=== PATIENT | male | born 1940 ===

== ENCOUNTER 2020-07-19 07:30 | Inpatient (IN) ==
[~2020-07-19 07:30] MED LIST: Buffered Lidocaine 1% SYRIN 1 ml INTRADERM ONE; Lactated Ringers 1000 ml BAG 1,000 ML IV SCH
[2020-08-16] MEDS ORDERED: Buffered Lidocaine 1% SYRIN 1 ml INTRADERM ONE ×2 (06:00→11:39)
[2020-08-16] MEDS ORDERED: Lactated Ringers 1000 ml BAG 1,000 ML IV SCH (06:00)
[2020-08-16] MEDS ORDERED: Midazolam 5 mg/5 ml VIAL 1 mg/ml 5 ml VIAL (5 mg) ONE (10:48)
[2020-08-16] MEDS ORDERED: Propofol 10 MG/ML 20 ML BTL ONE ×3 (10:53→15:25)
[2020-08-16] MEDS ORDERED: Clindamycin 900 MG/D5W BAG 900 MG/50 ML BAG IVPB ONE (11:39)
[2020-08-16] MEDS ORDERED: ROPIVACAINE 5 MG/ML 30 ML BTL (0.5%) ONE (12:10)
[2020-08-16] MEDS ORDERED: Lidocaine 1% MPF 5 ML VIAL ONE (12:10)
[2020-08-16] MEDS ORDERED: fentaNYL 100 mcg/2 ml 50 MCG/ML VIAL ONE (13:44)
[2020-08-16] MEDS ORDERED: Naloxone 0.4 mg VIAL 0.4 mg/ml 1 ml VIAL IV PRN (13:50)
[2020-08-16] MEDS ORDERED: fentaNYL 100 mcg/2 ml 50 MCG/ML VIAL IV PRN (13:50)
[2020-08-16] MEDS ORDERED: Ondansetron 4 mg VIAL 2 MG/ML 2 ml VIAL IV PRN ×2 (13:50→16:10)
[2020-08-16] MEDS ORDERED: Ondansetron 4 mg VIAL 2 MG/ML 2 ml VIAL ONE (13:58)
[2020-08-16] MEDS ORDERED: diPHENhydraMINE IV 50 MG/ML 1 ml VIAL (BENADRYL) IV PRN (16:10)
[2020-08-16] MEDS ORDERED: Morphine 2 MG/ML SYRINGE IV PRN (16:10)
[2020-08-16] MEDS ORDERED: Magnesium Hydroxide LIQ 30 ML UDC PO PRN (16:10)
[2020-08-16] MEDS ORDERED: Lactulose 30 ml UDC PO PRN (16:10)
[2020-08-16] MEDS ORDERED: Ondansetron ODT 4 mg TAB 4 MG TAB PO PRN (16:10)
[2020-08-16] MEDS ORDERED: diPHENhydraMINE 25 mg TAB PO PRN (16:10)
[2020-08-16] MEDS: Lactated Ringers 1000 ml BAG 1,000 ML IV SCH (17:23)
[2020-08-16] MEDS: Potassium Chlor 10 meq TAB PO SCH (20:12)
[2020-08-16] MEDS: oxyCODONE/Acetamin 5/325 mg TAB PO PRN (20:12)
[2020-08-16] MEDS: Magnesium Hydroxide LIQ 30 ML UDC PO SCH (20:15)
[2020-08-16] MEDS: PTO:Albuterol/Ipratropium RESP(NF) MDI (Combivent Respimat) INH SCH (21:17)
[2020-08-16] MEDS: Clindamycin 600 MG/D5W BAG 600 MG/50 ML BAG IV SCH (21:19)
[2020-08-17] MEDS: oxyCODONE/Acetamin 5/325 mg TAB PO PRN ×4 (00:08→21:08)
[2020-08-17 01:59] LABS: ABS Basophils 0.1 10^3/ul (0-0.2); ABS Eosinophils 0.1 10^3/ul (0-0.6); ABS Lymphocytes 1.1 10^3/ul (1.0-4.8); ABS Neutrophils 11.7 10^3/ul (1.5-7.7); Eosinophil % 0.9 %; Hematocrit 36 % (42-52); Lymphocyte % 8.2 %; Mean Corpuscular HGB Conc 36 g/dL (31-36); Mean Corpuscular Hemoglobin 35 pg (27-31); Mean Corpuscular Volume 97 fL (80-94); Mean Platelet Volume 8.6 fL (7.4-10.4); Platelet Count 187 10^3/uL (150-450); Red Blood Count 3.73 10^6 /uL (4.18-5.48); Red Cell Distribution Width 13 % (10-15); White Blood Count 14.1 10^3/uL (3.5-10.8)
[2020-08-17 02:13] LABS: BUN/Creatinine Ratio 12.6 (8-20); Calcium 8.6 mg/dL (8.6-10.3); EGFR African American 61.5 (>60); EGFR Non-African American 50.9 (>60); Potassium 3.7 mmol/L (3.5-5.0)
[2020-08-17] MEDS ORDERED: Lactated Ringers 500 ml BAG 500 ML IV SCH (03:00)
[2020-08-17] MEDS: Clindamycin 600 MG/D5W BAG 600 MG/50 ML BAG IV SCH ×2 (05:04→13:38)
[2020-08-17] MEDS: Lactated Ringers 1000 ml BAG 1,000 ML IV SCH ×2 (05:06→11:45)
[2020-08-17 06:19] LABS: Hematocrit 34 % (42-52); Hemoglobin 12.1 g/dL (14.0-18.0); Mean Platelet Volume 8.8 fL (7.4-10.4); Platelet Count 168 10^3/uL (150-450)
[2020-08-17 06:37] LABS: BUN/Creatinine Ratio 13.5 (8-20); Calcium 8.3 mg/dL (8.6-10.3); EGFR African American 62.6 (>60); EGFR Non-African American 51.7 (>60); Potassium 3.7 mmol/L (3.5-5.0)
[2020-08-17] MEDS ORDERED: Lactated Ringers 500 ml BAG 500 ML IV ONE ×2 (06:51→11:05)
[2020-08-17] MEDS: Potassium Chlor 10 meq TAB PO SCH ×2 (07:54→21:07)
[2020-08-17] MEDS: Vitamin THERAPEUTIC TAB PO SCH (07:55)
[2020-08-17] MEDS: Magnesium Hydroxide LIQ 30 ML UDC PO SCH ×2 (07:56→21:06)
[2020-08-17 08:10] LABS: Troponin I 0.06 ng/mL (<0.03)
[2020-08-17] MEDS: PTO:Albuterol/Ipratropium RESP(NF) MDI (Combivent Respimat) INH SCH ×3 (08:32→17:03)
[2020-08-17 09:06] LABS: Influenza A Molecular Negative (Negative); Influenza B Molecular Negative (Negative)
[2020-08-17 10:11] LABS: Urine Appearance Cloudy; Urine Bilirubin Negative (Negative); Urine Blood Negative (Negative); Urine Color Yellow; Urine Glucose Negative (Negative); Urine Ketones Negative (Negative); Urine Nitrite Negative (Negative); Urine Protein Negative (Negative); Urine Specific Gravity 1.021 (1.010-1.030); Urine Urobilinogen Negative (Negative)
[2020-08-17 13:57] LABS: Troponin I 0.06 ng/mL (<0.03)
[2020-08-17 17:49] LABS: Troponin I 0.06 ng/mL (<0.03)
[2020-08-18] MEDS: PTO:Albuterol/Ipratropium RESP(NF) MDI (Combivent Respimat) INH SCH ×3 (00:53→14:01)
[2020-08-18] MEDS: oxyCODONE/Acetamin 5/325 mg TAB PO PRN ×2 (04:00→11:25)
[2020-08-18 06:48] LABS: Hematocrit 33 % (42-52); Hemoglobin 11.7 g/dL (14.0-18.0); Mean Platelet Volume 8.3 fL (7.4-10.4); Platelet Count 148 10^3/uL (150-450)
[2020-08-18 08:40] LABS: Mean Corpuscular HGB Conc 36 g/dL (31-36); Mean Corpuscular Hemoglobin 34 pg (27-31); Mean Corpuscular Volume 96 fL (80-94); Red Blood Count 3.43 10^6 /uL (4.18-5.48); Red Cell Distribution Width 13 % (10-15); White Blood Count 15.6 10^3/uL (3.5-10.8)
[2020-08-18] MEDS: Vitamin THERAPEUTIC TAB PO SCH (08:44)
[2020-08-18] MEDS: Potassium Chlor 10 meq TAB PO SCH ×2 (08:45→23:12)
[2020-08-18] MEDS: Magnesium Hydroxide LIQ 30 ML UDC PO SCH ×2 (08:47→23:09)
[2020-08-18 12:33] LABS: ABS Basophils 0.1 10^3/ul (0-0.2); ABS Eosinophils 0.2 10^3/ul (0-0.6); ABS Lymphocytes 1.6 10^3/ul (1.0-4.8); ABS Monocytes 1.3 10^3/ul (0-0.8); ABS Neutrophils 12.3 10^3/ul (1.5-7.7); Eosinophil % 1.6 %; Lymphocyte % 10.5 %
[2020-08-18 13:07] LABS: Calcium 8.6 mg/dL (8.6-10.3); EGFR Non-African American 48.8 (>60); Potassium 3.9 mmol/L (3.5-5.0)
[2020-08-18] MEDS ORDERED: Lactated Ringers 1000 ml BAG 1,000 ML IV ONE (15:32)
[2020-08-18] MEDS ORDERED: Vancomycin 1,500 MG in NS 0.9% 250 ml 250 ML IVPB ONE (16:00)
[2020-08-18] MEDS ORDERED: Vancomycin per Pharmacy 1 EA NOTE FOLLOW UP SCH (16:00)
[2020-08-18 16:18] LABS: C Reactive Protein 310.41 mg/L (<8.01)
[2020-08-18] MEDS: Cefepime 2 GM in Dextrose 2 GM/50 ML BAG IV SCH (20:26)
[2020-08-18 23:48] LABS: Urine Appearance Cloudy; Urine Bilirubin Negative (Negative); Urine Blood 2+ (Negative); Urine Color Yellow; Urine Glucose Negative (Negative); Urine Ketones Negative (Negative); Urine Nitrite Negative (Negative); Urine Protein 1+(30 mg/dL) (Negative); Urine Specific Gravity 1.017 (1.010-1.030); Urine Urobilinogen Negative (Negative)
[2020-08-18 23:54] LABS: Urine Bacteria Absent (Absent); Urine Red Blood Cell Trace(0-2/hpf) (Absent); Urine Squamous Epithelial Cell Present (Absent); Urine White Blood Cell Trace(0-5/hpf) (Absent)
[2020-08-19 01:59] LABS: ABS Basophils 0.2 10^3/ul (0-0.2); ABS Eosinophils 0.1 10^3/ul (0-0.6); ABS Lymphocytes 1.4 10^3/ul (1.0-4.8); ABS Monocytes 1.5 10^3/ul (0-0.8); Eosinophil % 0.4 %; Hematocrit 29 % (42-52); Hemoglobin 10.6 g/dL (14.0-18.0); Lymphocyte % 6.8 %; Mean Corpuscular HGB Conc 36 g/dL (31-36); Mean Corpuscular Hemoglobin 35 pg (27-31); Mean Corpuscular Volume 96 fL (80-94); Mean Platelet Volume 8.3 fL (7.4-10.4); Platelet Count 165 10^3/uL (150-450); Red Blood Count 3.06 10^6 /uL (4.18-5.48); Red Cell Distribution Width 13 % (10-15); White Blood Count 21.2 10^3/uL (3.5-10.8)
[2020-08-19 02:22] LABS: Albumin 3.1 g/dL (3.2-5.2); Albumin/Globulin Ratio 1.2 (1-3); BUN/Creatinine Ratio 15.3 (8-20); C Reactive Protein 343.96 mg/L (<8.01); Calcium 8.1 mg/dL (8.6-10.3); EGFR African American 54.5 (>60); Globulin 2.6 g/dL (2-4); Potassium 3.8 mmol/L (3.5-5.0); Total Bilirubin 1.1 mg/dL (0.2-1.0); Total Protein 5.7 g/dL (6.4-8.9)
[2020-08-19] MEDS: Cefepime 2 GM in Dextrose 2 GM/50 ML BAG IV SCH ×2 (04:26→16:30)
[2020-08-19] MEDS: Vancomycin 1000 MG in NS 0.9% 250 ML IVPB SCH ×2 (05:29→17:24)
[2020-08-19] MEDS: Vitamin THERAPEUTIC TAB PO SCH (08:08)
[2020-08-19] MEDS: Potassium Chlor 10 meq TAB PO SCH ×2 (08:09→21:14)
[2020-08-19] MEDS: Magnesium Hydroxide LIQ 30 ML UDC PO SCH ×2 (08:12→21:05)
[2020-08-19] MEDS: PTO:Albuterol/Ipratropium RESP(NF) MDI (Combivent Respimat) INH SCH ×3 (12:17→17:25)
[2020-08-20] MEDS: Cefepime 2 GM in Dextrose 2 GM/50 ML BAG IV SCH ×2 (04:07→16:29)
[2020-08-20] MEDS: Vancomycin 1000 MG in NS 0.9% 250 ML IVPB SCH ×2 (04:57→17:44)
[2020-08-20 06:52] LABS: ABS Basophils 0.1 10^3/ul (0-0.2); ABS Eosinophils 0.4 10^3/ul (0-0.6); ABS Lymphocytes 1.5 10^3/ul (1.0-4.8); ABS Monocytes 1.3 10^3/ul (0-0.8); ABS Neutrophils 16.1 10^3/ul (1.5-7.7); Eosinophil % 1.9 %; Hematocrit 30 % (42-52); Hemoglobin 10.2 g/dL (14.0-18.0); Lymphocyte % 7.7 %; Mean Corpuscular HGB Conc 35 g/dL (31-36); Mean Corpuscular Hemoglobin 34 pg (27-31); Mean Corpuscular Volume 98 fL (80-94); Mean Platelet Volume 8.4 fL (7.4-10.4); Platelet Count 186 10^3/uL (150-450); Red Blood Count 3.02 10^6 /uL (4.18-5.48); Red Cell Distribution Width 12 % (10-15); White Blood Count 19.3 10^3/uL (3.5-10.8)
[2020-08-20 07:08] LABS: BUN/Creatinine Ratio 21.2 (8-20); C Reactive Protein 388.16 mg/L (<8.01); Calcium 8.1 mg/dL (8.6-10.3); EGFR African American 54.1 (>60); EGFR Non-African American 44.7 (>60); Potassium 3.9 mmol/L (3.5-5.0)
[2020-08-20] MEDS: PTO:Albuterol/Ipratropium RESP(NF) MDI (Combivent Respimat) INH SCH ×5 (08:48→21:59)
[2020-08-20] MEDS: Potassium Chlor 10 meq TAB PO SCH ×2 (08:51→21:53)
[2020-08-20] MEDS: Vitamin THERAPEUTIC TAB PO SCH (08:52)
[2020-08-20] MEDS: Magnesium Hydroxide LIQ 30 ML UDC PO SCH ×3 (08:53→21:57)
[2020-08-20] MEDS ORDERED: Vancomycin Trough Check NOTE FOLLOW UP ONE (16:30)
[2020-08-20 17:03] LABS: Urine Appearance Cloudy; Urine Bilirubin Negative (Negative); Urine Blood 2+ (Negative); Urine Color Yellow; Urine Glucose Negative (Negative); Urine Ketones Negative (Negative); Urine Nitrite Negative (Negative); Urine Protein 1+(30 mg/dL) (Negative); Urine Specific Gravity 1.017 (1.010-1.030); Urine Urobilinogen Negative (Negative)
[2020-08-20 17:11] LABS: Urine Bacteria 1+ (Absent); Urine Red Blood Cell 2+(6-10/hpf) (Absent); Urine Squamous Epithelial Cell Present (Absent); Urine White Blood Cell 1+(6-10/hpf) (Absent)
[2020-08-21] MEDS: Vancomycin 1,500 MG in NS 0.9% 250 ml 250 ML IVPB SCH ×2 (02:55→14:57)
[2020-08-21] MEDS: Cefepime 2 GM in Dextrose 2 GM/50 ML BAG IV SCH (06:14)
[2020-08-21 08:11] LABS: ABS Basophils 0.1 10^3/ul (0-0.2); ABS Eosinophils 0.2 10^3/ul (0-0.6); ABS Lymphocytes 0.7 10^3/ul (1.0-4.8); ABS Monocytes 0.8 10^3/ul (0-0.8); ABS Neutrophils 12.9 10^3/ul (1.5-7.7); Eosinophil % 1.5 %; Hematocrit 28 % (42-52); Hemoglobin 9.8 g/dL (14.0-18.0); Lymphocyte % 4.9 %; Mean Corpuscular HGB Conc 35 g/dL (31-36); Mean Corpuscular Hemoglobin 34 pg (27-31); Mean Corpuscular Volume 98 fL (80-94); Mean Platelet Volume 8.2 fL (7.4-10.4); Platelet Count 194 10^3/uL (150-450); Red Blood Count 2.86 10^6 /uL (4.18-5.48); Red Cell Distribution Width 13 % (10-15); White Blood Count 14.7 10^3/uL (3.5-10.8)
[2020-08-21 08:23] LABS: BUN/Creatinine Ratio 26.1 (8-20); Calcium 7.9 mg/dL (8.6-10.3); Magnesium 2.7 mg/dL (1.9-2.7); Potassium 3.6 mmol/L (3.5-5.0)
[2020-08-21] MEDS: Potassium Chlor 10 meq TAB PO SCH ×2 (09:37→20:56)
[2020-08-21] MEDS: Vitamin THERAPEUTIC TAB PO SCH (09:38)
[2020-08-21] MEDS: Magnesium Hydroxide LIQ 30 ML UDC PO SCH ×2 (09:41→21:00)
[2020-08-21] MEDS: PTO:Albuterol/Ipratropium RESP(NF) MDI (Combivent Respimat) INH SCH ×3 (09:42→20:59)
[2020-08-21 11:14] LABS: Erythrocyte Sed Rate > 120 mm/Hr (0-19)
[2020-08-21] MEDS: Potassium Chloride LIQUID 20 MEQ/15 ML LIQUID PO ONE ×2 (11:43→11:49)
[2020-08-22] MEDS: Vancomycin 1,500 MG in NS 0.9% 250 ml 250 ML IVPB SCH ×2 (02:40→15:39)
[2020-08-22 05:26] LABS: ABS Basophils 0.1 10^3/ul (0-0.2); ABS Eosinophils 0.3 10^3/ul (0-0.6); ABS Lymphocytes 1.2 10^3/ul (1.0-4.8); ABS Neutrophils 12.8 10^3/ul (1.5-7.7); Eosinophil % 2.1 %; Hematocrit 29 % (42-52); Lymphocyte % 7.6 %; Mean Corpuscular HGB Conc 35 g/dL (31-36); Mean Corpuscular Hemoglobin 34 pg (27-31); Mean Corpuscular Volume 99 fL (80-94); Mean Platelet Volume 8.1 fL (7.4-10.4); Platelet Count 246 10^3/uL (150-450); Red Blood Count 2.92 10^6 /uL (4.18-5.48); Red Cell Distribution Width 13 % (10-15); White Blood Count 15.4 10^3/uL (3.5-10.8)
[2020-08-22 05:46] LABS: BUN/Creatinine Ratio 24.2 (8-20); Calcium 8.2 mg/dL (8.6-10.3); EGFR African American 51.7 (>60); EGFR Non-African American 42.7 (>60); Potassium 3.9 mmol/L (3.5-5.0)
[2020-08-22] MEDS: Vitamin THERAPEUTIC TAB PO SCH (08:36)
[2020-08-22] MEDS: Magnesium Hydroxide LIQ 30 ML UDC PO SCH ×2 (08:36→20:23)
[2020-08-22] MEDS: Potassium Chlor 10 meq TAB PO SCH ×2 (08:36→20:24)
[2020-08-22] MEDS: Metoprolol Tartrate 5 mg VIAL 5 ml VIAL (1 mg/ml) IV PRN (08:36)
[2020-08-22 11:24] LABS: C Reactive Protein 307.27 mg/L (<8.01)
[2020-08-22] MEDS ORDERED: Vancomycin Trough Check NOTE FOLLOW UP ONE (14:30)
[2020-08-22] MEDS: PTO:Albuterol/Ipratropium RESP(NF) MDI (Combivent Respimat) INH SCH ×2 (15:35→19:10)
[2020-08-23] MEDS: Vancomycin 1,500 MG in NS 0.9% 250 ml 250 ML IVPB SCH (03:08)
[2020-08-23 06:09] LABS: ABS Basophils 0.1 10^3/ul (0-0.2); ABS Eosinophils 0.5 10^3/ul (0-0.6); ABS Lymphocytes 1.3 10^3/ul (1.0-4.8); ABS Monocytes 0.9 10^3/ul (0-0.8); ABS Neutrophils 12.7 10^3/ul (1.5-7.7); Hematocrit 28 % (42-52); Hemoglobin 9.8 g/dL (14.0-18.0); Lymphocyte % 8.4 %; Mean Corpuscular HGB Conc 35 g/dL (31-36); Mean Corpuscular Hemoglobin 34 pg (27-31); Mean Corpuscular Volume 97 fL (80-94); Platelet Count 285 10^3/uL (150-450); Red Blood Count 2.87 10^6 /uL (4.18-5.48); Red Cell Distribution Width 13 % (10-15); White Blood Count 15.4 10^3/uL (3.5-10.8)
[2020-08-23 06:30] LABS: BUN/Creatinine Ratio 26.3 (8-20); Calcium 7.7 mg/dL (8.6-10.3); EGFR African American 62.6 (>60); EGFR Non-African American 51.7 (>60); Potassium 3.7 mmol/L (3.5-5.0)
[2020-08-23] MEDS: PTO:Albuterol/Ipratropium RESP(NF) MDI (Combivent Respimat) INH SCH ×5 (07:17→19:20)
[2020-08-23] MEDS: Metoprolol Tartrate 5 mg VIAL 5 ml VIAL (1 mg/ml) IV PRN (10:11)
[2020-08-23] MEDS: Potassium Chlor 10 meq TAB PO SCH ×2 (10:16→20:51)
[2020-08-23] MEDS: Vitamin THERAPEUTIC TAB PO SCH (10:16)
[2020-08-23] MEDS: Magnesium Hydroxide LIQ 30 ML UDC PO SCH ×2 (10:18→23:40)
[2020-08-23 17:57] LABS: Cyclic Citrullinated Pept IgG <15.6 U
[2020-08-24 06:19] LABS: BUN/Creatinine Ratio 25.4 (8-20); C Reactive Protein 233.18 mg/L (<8.01); EGFR African American 66.6 (>60); EGFR Non-African American 55.1 (>60); Potassium 3.8 mmol/L (3.5-5.0)
[2020-08-24 06:20] LABS: ABS Basophils 0.1 10^3/ul (0-0.2); ABS Eosinophils 0.5 10^3/ul (0-0.6); ABS Lymphocytes 1.4 10^3/ul (1.0-4.8); ABS Monocytes 0.8 10^3/ul (0-0.8); ABS Neutrophils 13.2 10^3/ul (1.5-7.7); Hematocrit 30 % (42-52); Hemoglobin 10.3 g/dL (14.0-18.0); Lymphocyte % 8.7 %; Mean Corpuscular HGB Conc 34 g/dL (31-36); Mean Corpuscular Hemoglobin 34 pg (27-31); Mean Corpuscular Volume 99 fL (80-94); Mean Platelet Volume 8.1 fL (7.4-10.4); Nucleated Red Blood Cells % 0.1; Platelet Count 368 10^3/uL (150-450); Red Blood Count 3.07 10^6 /uL (4.18-5.48); Red Cell Distribution Width 13 % (10-15)
[2020-08-24] MEDS: PTO:Albuterol/Ipratropium RESP(NF) MDI (Combivent Respimat) INH SCH ×4 (07:14→20:03)
[2020-08-24] MEDS: Potassium Chlor 10 meq TAB PO SCH ×2 (10:29→21:12)
[2020-08-24] MEDS: Vitamin THERAPEUTIC TAB PO SCH (10:31)
[2020-08-24] MEDS: Magnesium Hydroxide LIQ 30 ML UDC PO SCH (10:34)
[2020-08-24] MEDS: Metoprolol Tartrate 5 mg VIAL 5 ml VIAL (1 mg/ml) IV PRN (11:40)
[2020-08-24 15:49] LABS: Albumin 2.2 g/dL (3.4-4.7); Albumin/Globulin Ratio 0.75; Gamma Globulin 0.6 g/dL (0.6-1.6); Total Protein(PEP) 5.2 g/dL (6.3 - 7.9)
[2020-08-24 18:30] LABS: CMV DNA DETECT/QT, P Undetected IU/mL (Undetected)
[2020-08-25] MEDS: Magnesium Hydroxide LIQ 30 ML UDC PO SCH ×3 (00:26→21:49)
[2020-08-25 05:36] LABS: Hematocrit 28 % (42-52); Hemoglobin 9.7 g/dL (14.0-18.0); Mean Corpuscular HGB Conc 34 g/dL (31-36); Mean Corpuscular Hemoglobin 33 pg (27-31); Mean Corpuscular Volume 97 fL (80-94); Mean Platelet Volume 7.6 fL (7.4-10.4); Platelet Count 395 10^3/uL (150-450); Red Blood Count 2.89 10^6 /uL (4.18-5.48); Red Cell Distribution Width 13 % (10-15); White Blood Count 14.7 10^3/uL (3.5-10.8)
[2020-08-25 05:49] LABS: BUN/Creatinine Ratio 22.7 (8-20); Calcium 7.8 mg/dL (8.6-10.3); EGFR African American 71.2 (>60); EGFR Non-African American 58.8 (>60)
[2020-08-25 06:07] LABS: ABS Basophils 0.1 10^3/ul (0-0.2); ABS Eosinophils 0.4 10^3/ul (0-0.6); ABS Lymphocytes 1.4 10^3/ul (1.0-4.8); ABS Monocytes 0.9 10^3/ul (0-0.8); ABS Neutrophils 11.9 10^3/ul (1.5-7.7); Eosinophil % 2.8 %; Lymphocyte % 9.6 %
[2020-08-25] MEDS: PTO:Albuterol/Ipratropium RESP(NF) MDI (Combivent Respimat) INH SCH ×6 (07:05→19:40)
[2020-08-25] MEDS: Vitamin THERAPEUTIC TAB PO SCH (08:16)
[2020-08-25] MEDS: Potassium Chlor 10 meq TAB PO SCH ×2 (08:16→21:49)
[2020-08-25 10:41] LABS: Proteinase 3 <0.2 U
[2020-08-25 11:46] LABS: Cytomegalovirus IgG Antibody Negative (Negative); EBV Capsid Ag IgG Ab Positive (Negative); EBV Capsid Ag IgM Ab Negative (Negative); Epstein-Barr Nuclear Antigen Positive (Negative)
[2020-08-25 12:30] LABS: Albumin/Globulin Ratio 0.49 %; Protein,Total, Random Urine 31 mg/dL
[2020-08-25 16:51] LABS: C-ANCA Negative (Negative); P-ANCA Negative (Negative)
[2020-08-25 22:09] LABS: Urine Appearance Cloudy; Urine Bilirubin Negative (Negative); Urine Blood 1+ (Negative); Urine Color Yellow; Urine Glucose Negative (Negative); Urine Ketones Negative (Negative); Urine Nitrite Negative (Negative); Urine Protein Negative (Negative); Urine Specific Gravity 1.016 (1.010-1.030); Urine Urobilinogen Negative (Negative)
[2020-08-25 22:17] LABS: Urine Bacteria Absent (Absent); Urine Red Blood Cell 1+(3-5/hpf) (Absent); Urine Uric Acid Crystals Present (Absent); Urine White Blood Cell Trace(0-5/hpf) (Absent)
[2020-08-26] MEDS: PTO:Albuterol/Ipratropium RESP(NF) MDI (Combivent Respimat) INH SCH ×4 (07:27→20:16)
[2020-08-26] MEDS: Potassium Chlor 10 meq TAB PO SCH ×2 (08:23→22:05)
[2020-08-26] MEDS: Vitamin THERAPEUTIC TAB PO SCH (08:24)
[2020-08-26] MEDS: Magnesium Hydroxide LIQ 30 ML UDC PO SCH ×2 (08:34→22:03)
[2020-08-27 04:12] LABS: Urine Appearance Clear; Urine Bilirubin Negative (Negative); Urine Blood Negative (Negative); Urine Color Yellow; Urine Glucose Negative (Negative); Urine Ketones Negative (Negative); Urine Nitrite Negative (Negative); Urine Protein Negative (Negative); Urine Specific Gravity 1.008 (1.010-1.030); Urine Urobilinogen Negative (Negative)
[2020-08-27 07:36] LABS: BUN/Creatinine Ratio 15.1 (8-20); Calcium 8.3 mg/dL (8.6-10.3); EGFR African American 71.2 (>60); EGFR Non-African American 58.8 (>60); Potassium 3.8 mmol/L (3.5-5.0)
[2020-08-27] MEDS: PTO:Albuterol/Ipratropium RESP(NF) MDI (Combivent Respimat) INH SCH ×4 (07:45→19:01)
[2020-08-27] MEDS: Potassium Chlor 10 meq TAB PO SCH ×2 (09:43→20:48)
[2020-08-27] MEDS: Vitamin THERAPEUTIC TAB PO SCH (09:45)
[2020-08-27] MEDS: Magnesium Hydroxide LIQ 30 ML UDC PO SCH ×2 (09:46→20:51)
[2020-08-28 07:01] LABS: BUN/Creatinine Ratio 14.8 (8-20); C Reactive Protein 117.08 mg/L (<8.01); Calcium 8.7 mg/dL (8.6-10.3); EGFR Non-African American 61.2 (>60); Potassium 4.1 mmol/L (3.5-5.0)
[2020-08-28] MEDS: PTO:Albuterol/Ipratropium RESP(NF) MDI (Combivent Respimat) INH SCH ×4 (07:37→19:20)
[2020-08-28] MEDS: Potassium Chlor 10 meq TAB PO SCH ×2 (09:00→20:38)
[2020-08-28] MEDS: Vitamin THERAPEUTIC TAB PO SCH (10:01)
[2020-08-28] MEDS: Magnesium Hydroxide LIQ 30 ML UDC PO SCH ×2 (10:03→20:39)
[2020-08-28] MEDS ORDERED: Albuterol/Ipratropium NEB.SOL (2.5/0.5 MG) 3 ML NEB.SOLN INH PRN (16:42)
[2020-08-29] MEDS: PTO:Albuterol/Ipratropium RESP(NF) MDI (Combivent Respimat) INH SCH ×4 (07:07→19:14)
[2020-08-29] MEDS: Potassium Chlor 10 meq TAB PO SCH ×2 (08:05→20:06)
[2020-08-29] MEDS: Vitamin THERAPEUTIC TAB PO SCH (08:06)
[2020-08-29] MEDS: Magnesium Hydroxide LIQ 30 ML UDC PO SCH ×2 (08:08→20:08)
[2020-08-30 06:36] LABS: ABS Basophils 0.1 10^3/ul (0-0.2); ABS Eosinophils 0.5 10^3/ul (0-0.6); ABS Lymphocytes 2.1 10^3/ul (1.0-4.8); ABS Monocytes 0.7 10^3/ul (0-0.8); ABS Neutrophils 11.5 10^3/ul (1.5-7.7); Eosinophil % 3.3 %; Hematocrit 31 % (42-52); Hemoglobin 10.4 g/dL (14.0-18.0); Lymphocyte % 13.9 %; Mean Corpuscular HGB Conc 34 g/dL (31-36); Mean Corpuscular Hemoglobin 33 pg (27-31); Mean Corpuscular Volume 97 fL (80-94); Mean Platelet Volume 7.1 fL (7.4-10.4); Platelet Count 457 10^3/uL (150-450); Red Blood Count 3.18 10^6 /uL (4.18-5.48); Red Cell Distribution Width 13 % (10-15); White Blood Count 14.8 10^3/uL (3.5-10.8)
[2020-08-30 06:46] LABS: BUN/Creatinine Ratio 20.4 (8-20); Calcium 9.2 mg/dL (8.6-10.3); EGFR Non-African American 73.6 (>60); Potassium 4.4 mmol/L (3.5-5.0)
[2020-08-30] MEDS: PTO:Albuterol/Ipratropium RESP(NF) MDI (Combivent Respimat) INH SCH ×4 (07:53→19:29)
[2020-08-30] MEDS: Vitamin THERAPEUTIC TAB PO SCH (08:27)
[2020-08-30] MEDS: Potassium Chlor 10 meq TAB PO SCH ×2 (08:27→20:46)
[2020-08-30] MEDS: Magnesium Hydroxide LIQ 30 ML UDC PO SCH ×2 (10:36→20:52)
[2020-08-31] MEDS: PTO:Albuterol/Ipratropium RESP(NF) MDI (Combivent Respimat) INH SCH ×4 (07:29→19:37)
[2020-08-31] MEDS: Vitamin THERAPEUTIC TAB PO SCH (08:29)
[2020-08-31] MEDS: Potassium Chlor 10 meq TAB PO SCH ×2 (08:30→21:53)
[2020-08-31] MEDS: Magnesium Hydroxide LIQ 30 ML UDC PO SCH ×2 (08:41→21:54)
[2020-08-31] MEDS: Albuterol HFA INHALER 8 gm MDI INH SCH (19:36)
[2020-09-01 07:04] LABS: BUN/Creatinine Ratio 15.8 (8-20); Calcium 8.9 mg/dL (8.6-10.3); EGFR African American 74.8 (>60); EGFR Non-African American 61.8 (>60); Magnesium 1.6 mg/dL (1.9-2.7); Potassium 4.1 mmol/L (3.5-5.0)
[2020-09-01] MEDS: PTO:Albuterol/Ipratropium RESP(NF) MDI (Combivent Respimat) INH SCH ×3 (07:14→15:59)
[2020-09-01] MEDS: Albuterol HFA INHALER 8 gm MDI INH SCH ×4 (07:14→19:16)
[2020-09-01] MEDS ORDERED: Magnesium Sulf 4 GM/100 ML IV 4,000 MG/100 ML BAG IVPB ONE (09:15)
[2020-09-01] MEDS: Vitamin THERAPEUTIC TAB PO SCH (10:42)
[2020-09-01] MEDS: Potassium Chlor 10 meq TAB PO SCH ×2 (10:43→20:24)
[2020-09-01] MEDS: Magnesium Hydroxide LIQ 30 ML UDC PO SCH ×2 (10:43→20:25)
[2020-09-02 06:12] LABS: ABS Basophils 0.1 10^3/ul (0-0.2); ABS Eosinophils 0.4 10^3/ul (0-0.6); ABS Lymphocytes 2.3 10^3/ul (1.0-4.8); ABS Monocytes 0.7 10^3/ul (0-0.8); ABS Neutrophils 10.9 10^3/ul (1.5-7.7); Eosinophil % 2.6 %; Hematocrit 34 % (42-52); Hemoglobin 11.3 g/dL (14.0-18.0); Mean Corpuscular HGB Conc 33 g/dL (31-36); Mean Corpuscular Hemoglobin 32 pg (27-31); Mean Corpuscular Volume 97 fL (80-94); Mean Platelet Volume 6.8 fL (7.4-10.4); Platelet Count 429 10^3/uL (150-450); Red Cell Distribution Width 13 % (10-15); White Blood Count 14.4 10^3/uL (3.5-10.8)
[2020-09-02 06:28] LABS: BUN/Creatinine Ratio 16.5 (8-20); Calcium 9.1 mg/dL (8.6-10.3); EGFR Non-African American 61.2 (>60); Potassium 4.1 mmol/L (3.5-5.0)
[2020-09-02] MEDS: Albuterol HFA INHALER 8 gm MDI INH SCH ×4 (08:12→19:37)
[2020-09-02] MEDS: Potassium Chlor 10 meq TAB PO SCH ×2 (10:01→21:04)
[2020-09-02] MEDS: Vitamin THERAPEUTIC TAB PO SCH (10:01)
[2020-09-02] MEDS: Magnesium Hydroxide LIQ 30 ML UDC PO SCH ×2 (10:02→21:15)
[2020-09-03] MEDS: Albuterol HFA INHALER 8 gm MDI INH SCH ×2 (07:11→11:09)
[2020-09-03] MEDS: Vitamin THERAPEUTIC TAB PO SCH (09:46)
[2020-09-03] MEDS: Potassium Chlor 10 meq TAB PO SCH (09:46)
[2020-09-03] MEDS: Magnesium Hydroxide LIQ 30 ML UDC PO SCH (09:47)
[2020-09-03 11:35] VITALS: BP 134/53
== END 2020-09-03 14:10 | DRG 469 ==
LOC: AA 08-16 10:58 → SSU 08-16 17:15 → MED 08-18 19:28
PROVIDERS: ADMIT Orthopaedic Surgery Adult Reconstructive Orthopaedic Surgery; ATTEND Student in an Organized Health Care Education/Training Program